=== PATIENT | male | born 1975 | race Caucasian/White ===

== ENCOUNTER 2023-10-07 06:25 | Day surgery (SDC) | payer OTHER, SELFPAY ==
[2023-10-07] VITALS (7 sets, daily range): BP systolic 147–179; BP diastolic 79–97; BMI 27.4
[2023-10-07] MEDS: NORMOSOL-R 1000 IV (09:10)
--- NOTE | 2023-10-07 09:11 | W.SUR.PREOP ---
Pre-Operative Surgical Note
-
I have examined this patient prior to the performance of the scheduled procedure.
The patient's condition is unchanged from the time of the current History and
Physical and the patient is able to undergo the scheduled procedure.
[2023-10-07] MEDS: TYLENOL 1000 MG PO (09:14)
--- NOTE | 2023-10-07 12:10 | W.IMMPOSTOP ---
Surgical Immed Post Op Note
-
Primary Surgeon: Osman Castillo MD
Assisting Surgeon: None
Pre-op Diagnosis: Right inguinal hernia (scrotal)
Post-op Diagnosis: Bilateral inguinal hernia
Procedure Performed:
1. Robotic right scrotal inguinal hernia repair with mesh ([place] approach)
2. Robotic left inguinal hernia repair with mesh ([place] approach)
Anesthesia Type: General
Specimen / Cultures: None
Estimated Blood Loss: 7 cc
Complications: None
Operative Findings:
The patient had bilateral direct inguinal hernias right significantly larger than the left. No indirect components. Small femoral hernia defects also noted bilaterally right greater than left. The right myopectineal orifice was covered with an
extra-large mid weight Bard soft uncoated polypropylene mesh. The left myopectineal orifice was covered with a large mid weight Bard soft uncoated polypropylene mesh.
POST OP PLAN:
Will discharge home after voiding, with an ice pack.
--- NOTE | 2023-10-07 12:13 | OR.RPT ---
Operative Report
Operative Report
Patient Name: Scotty Alvarez
: 1975
Date of Operation: 10/07/2023
Preoperative Diagnosis: Right scrotal inguinal hernia
Postoperative Diagnosis: Bilateral inguinal hernia (right scrotal)
Procedure(s):
1. Robotic right scrotal inguinal hernia repair with mesh ([place] approach)
2. Robotic left inguinal hernia repair with mesh ([place] approach)
Surgeon(s):
Dr. Castillo
Data Integrity Analyst(s):
PAT Penn
Anesthesia: General
Estimated Blood Loss: [7] cc
Urine Output: None
Drains/Lines/Implants: Large Bilateral 3D Max Bard mid weight mesh
Specimens: None
Indication for surgery: The patient has a history of groin pain and noted on exam to have a large scrotal right inguinal hernia. Following review of therapeutic options they have elected to undergo a minimally invasive repair.
Operative Findings:
The patient had bilateral direct inguinal hernias right significantly larger than the left. No indirect components. Small femoral hernia defects also noted bilaterally right greater than left. The right myopectineal orifice was covered with an
extra-large mid weight Bard soft uncoated polypropylene mesh. The left myopectineal orifice was covered with a large mid weight Bard soft uncoated polypropylene mesh.
Details of the operation:
The patient was brought to the Operating Room and placed in the supine position with the arms tucked. IV antibiotics were infused and Venodyne stockings placed. Following uneventful induction of general endotracheal anesthesia, an orogastric tube
were placed. The abdomen was prepped and draped in the usual sterile fashion. The abdomen was entered using a Veress technique which required [1] pass, pneumoperitoneum to 15 mmHg was obtained without difficulty. An 8mm trochar was passed through
the abdominal wall roughly 20 cm cephalad to the inguinal canal. We then confirmed that no inadvertent injury was made while passing the trocar or Veress needle. We then placed two additional 8 mm ports in the left upper and right upper quadrants.
We then docked the robot with a Prograsper in the left hand port and monopolar scissors in the right. The patient was noted to have bilateral direct inguinal hernias with no intra-abdominal contents. We then began by creating a flap at the level
of the ASIS on the right side laterally working our way medially to the medial umbilical fold. Staying onto the peritoneum we were able to circumferentially dissect around the hernia sac and and peel it off of the underlying [spermatic cord and
testicular vessels, taking care to preserve them]. The peritoneum was very very thin and a small rent was made on the peritoneal flap. I then noted that a small superficial thermal injury had been made to the underlying small bowel. This was
oversewn with a 2-0 Vicryl [id number] stitch. This was inherent to the procedure and of no significant consequence. Medially we identified the midline pubis as well as Edenilson's ligament and ensured to dissect 2 cm below the pubic rim over the
bladder. We then turned our attention to the direct inguinal hernia, the pseudosac was identified and reduced. After exposure of the entire right myopectineal orifice we identified and reduced: [No indirect inguinal hernia, a very large scrotal
direct inguinal hernia, a small femoral hernia, a small cord lipoma, which was removed].
We then turned our attention to the left inguinal hernia. Flap was created from the level of the ASIS medially similar to our contralateral flap. Again staying onto the peritoneum we were able to circumferentially dissect around the hernia sac and
peel it off of the underlying spermatic cord and testicular vessels taking care to preserve them. The peritoneum here was also very very thin and again a small rent in the peritoneum was made but this was closed with a 2-0 Vicryl suture. There was
no injury to the underlying viscera. The pseudosac of the direct inguinal hernia was identified and carefully reduced. Medially we identified Edenilson's and inserted dissected to centimeters below the pubic rim over the bladder connecting with our
previous space. After exposure of the entire left myopectineal orifice we identified and reduced: [No indirect inguinal hernia, a medium scrotal direct inguinal hernia, a small femoral hernia, and no cord lipoma].
The pseudosac's were then inverted and tied down to Edenilson's ligament bilaterally obliterating the space to prevent future seroma formation using 2-0 Vicryl suture. The left inguinal hernia was then repaired with a large left 3D max uncoated
polypropylene mesh while the right inguinal hernia was repaired with an extra-large right 3D max uncoated polypropylene mesh. We then fixated the meshes at coopers medially and superior laterally. The meshes were also sutured together in the upper
midline. The flaps were then closed with running 2-0 barbed Monocryl sutures ensuring that the tails were cut flush with the medial fat pad so that no barbs were exposed. During the closure of the flap an Angiocath was inserted and 30 cc of
quarter percent Marcaine was instilled. The area in the flap cavity was then evacuated of air confirming that the mesh was flush and there were no folds. A few small rents in the peritoneal flaps were identified and closed with 2-0 Vicryl sutures.
All needles and instruments were then removed and the robot was undocked. The abdomen was then desufflated, and pneumoperitoneum evacuated. All skin sites were then closed with 4-0 Monocryl followed by Dermabond. Counts were correct and overall,
the patient tolerated the procedure well and was taken to the Recovery Room postoperatively in stable condition.
I was the attending physician and performed the procedure with assistance of the PA above. The assistance of PAT Penn was required due to the complexity of the procedure. During the procedure Libby assisted with retraction, passing
instruments, and closure of the wound. I was present for all portions of the case, excluding skin closure.
Osman Castillo MD
== END 2023-10-07 13:39 | disposition home or self-care (01) ==
LOC: SDS 06:25
PROVIDERS: ATTENDING PHYSICIAN Surgery
DX: K40.20 Bilateral inguinal hernia, without obstruction or gangrene, not specified as recurrent (principal)
CPT/HCPCS: 49650; C1781